=== PATIENT | female | born 1970 | race Caucasian/White ===

== ENCOUNTER 2017-08-31 07:51 | Inpatient (IN) | payer BC ==
[2017-08-31 08:29] LABS: Urine Blood TRACE (NEG); Urine Glucose NEGATIVE (NEG); Urine Protein NEGATIVE (NEG)
[2017-08-31] MEDS ORDERED: NA CHLORIDE 0.9% 1,000 ML ONE ×2 (08:40→11:05)
[2017-08-31] MEDS ORDERED: ONDANSETRON 4 MG/2 ML VIAL ONE ×2 (08:40→10:49)
[2017-08-31] MEDS ORDERED: MORPHINE 4 MG/ML SYR ONE (08:40)
[2017-08-31 08:45] LABS: Urine Bacteria <20 /HPF (<20); Urine Culture Reflex Order REFLEXED; Urine Mucus LIGHT /HPF (NONE SEEN); Urine RBC <5 /HPF (NONE SEEN)
[2017-08-31 08:50] LABS: Absolute Lymphocytes (CBC) 1.4 K/uL (0.7-4.9); Absolute Monocytes 0.7 K/uL (0.1-1.3); Basophils % 0.3 % (0-1.3); Eosinophils % 0.7 % (0-4.4); Hematocrit 39.5 % (36.0-45.0); Lymphocytes % 10.8 % (15.3-44.8); MCV 86.7 fL (80-100); MPV 8.1 fL (7.6-11.3); Monocytes % 5.6 % (3.3-12.3); RBC Red Blood Cell Count 4.56 M/uL (3.86-4.86)
[2017-08-31 08:53] LABS: Glomerular Filtration Rate > 60 mL/min (>60)
[2017-08-31 08:59] LABS: Albumin 4.1 g/dL (3.2-5.5); Bilirubin Direct 0.1 mg/dL (0-0.2); Bilirubin Total 0.8 mg/dL (0.3-1.2); Protein, Total 7.4 g/dL (6.0-8.3)
--- NOTE | 2017-08-31 10:35 | RAD REPORT ---
EXAM DESCRIPTION: CTAbdomen Pelvis W Contrast - 08/31/2017 10:21 am CLINICAL HISTORY: Abdominal pain. COMPARISON: None. TECHNIQUE: Biphasic CT imaging of the abdomen and pelvis was performed with 100 ml non-ionic IV cont rast. All CT scans are performed using dose optimization technique as appropriate and may include automated exposure control or mA/KV adjustment according to patient size. FINDINGS: The lung bases are clear. Several hypodense liver lesions are present, the largest measuring 3.6 cm in the anterior superior ri ght lobe, likely representing a benign cyst. The spleen, pancreas, adrenal glands and kidneys show no acute process. Cyst is present in the inferior cortex right kidney measuring 15 mm. No bowel obstruction, free air, free fluid or abscess. The appendix is dilated to 17 mm with surroun ding inflammatory changes, compatible with acute appendicitis. Air is present in the lumen of the brando endix which could indicate early perforation. Sigmoid diverticulosis coli is present without divertic ulitis. No evidence of significant lymphadenopathy. Small fat containing umbilical hernia. No suspicious bony findings. Fibroid uterus suspected. IMPRESSION: Moderate acute appendicitis as detailed.
[2017-08-31] MEDS ORDERED: KETOROLAC 30 MG/ML INJ ONE ×2 (10:49→13:37)
--- NOTE | 2017-08-31 10:53 | ER ---
Nurse's Notes [facility] Name: Katie Stanley Age: 47 yrs Sex: Female : 1970 Arrival Date: 08/31/2017 Time: 07:53 Bed 20 Private MD: Ferdinand Ty H Diagnosis: Acute appendicitis with localized peritonitis Presentation: 08/31 08:04 Presenting complaint: Patient states: RLQ pain x 1 week, has gotten worse since ss yesterday. pt reports diarrhea initially when pain began, but now believes she may be constipated. Transition of care: patient was not received from another setting of care. Onset of symptoms was August 24, 2017. Care prior to arrival: None. 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 - Social history:: Smoking status: Patient/guardian denies using tobacco. Screenin:34 Abuse screen: Denies threats or abuse. Nutritional screening: No deficits noted. em Tuberculosis screening: No symptoms or risk factors identified. Fall Risk None identified. Assessment: 08:20 General: Appears in no apparent distress. uncomfortable, Behavior is calm, cooperative. em General: Denies fever. Pain: Complains of pain in right lower quadrant Pain radiates to left lower quadrant Pain currently is 9 out of 10 on a pain scale. Quality of pain is described as sharp, Pain began 2-3 days ago. Neuro: Level of Consciousness is awake, alert, obeys commands, Oriented to person, place, time, situation. Cardiovascular: Capillary refill < 3 seconds Patient's skin is warm and dry. Respiratory: Airway is patent Respiratory effort is even, unlabored, Respiratory pattern is regular, symmetrical. GI: Abdomen is flat, Bowel sounds present X 4 quads. Abd is soft X 4 quads Abdomen is tender to palpation in right lower quadrant Reports diarrhea, nausea, Patient currently denies vomiting. : Urine is clear. EENT: No signs and/or symptoms were reported regarding the EENT system. Derm: Skin is intact, Skin is pink, warm \T\ dry. Musculoskeletal: Range of motion: intact in all extremities. 08:30 Reassessment: I agree with above assessment by Adonay Lang LVN. iw 08:42 Reassessment: Patient appears in no apparent distress at this time. Patient is alert, em oriented x 3, equal unlabored respirations, skin warm/dry/pink. finished drinking PO contrast, CT dept. notified Patient states feeling better. 09:40 Reassessment: Patient appears in no apparent distress at this time. Patient and/or em family updated on plan of care and expected duration. Pain level reassessed. Patient is alert, oriented x 3, equal unlabored respirations, skin warm/dry/pink. Patient states feeling better. Patient states symptoms have improved. 10:40 Reassessment: Patient appears in no apparent distress at this time. Patient and/or em family updated on plan of care and expected duration. Pain level reassessed. Patient is alert, oriented x 3, equal unlabored respirations, skin warm/dry/pink. 11:34 Reassessment: Patient appears in no apparent distress at this time. Patient and/or em family updated on plan of care and expected duration. Pain level reassessed. Patient is alert, oriented x 3, equal unlabored respirations, skin warm/dry/pink. Patient states symptoms have improved. Vital Signs: 08:11 BP 152 / 77; Pulse 82; Resp 18; Temp 98.2; Pulse Ox 97% on R/A; Pain 9/10; em 08:59 BP 131 / 80; Pulse 75; Resp 18; Pulse Ox 97% on R/A; Pain 5/10; em 09:57 BP 146 / 91; Pulse 84; Resp 17; Pulse Ox 96% on R/A; mh5 11:34 BP 143 / 85; Pulse 78; Resp 18; Pulse Ox 99% on R/A; Pain 3/10; em ED Course: 07:53 Patient arrived in ED. as 07:54 Ferdinand Ty DO is Private Physician. as 07:59 [facility] Hammond [facility] cp 07:59 Bo Montalvo MD is Attending Physician. cp 07:59 Adonay Lang LVN is Primary Nurse. em 08:05 Triage completed. ss 08:30 No provider procedures requiring assistance completed. Initial lab(s) drawn, by me, em sent to lab. Urine collected: clean catch specimen, clear. Inserted saline lock: 20 gauge in right antecubital area, using aseptic technique. Blood collected. 08:34 Patient has correct armband on for positive identification. Placed in gown. Bed in low em position. Call light in reach. Side rails up X2. 08:38 Arm band placed on. em 10:17 CT completed. Patient tolerated procedure well. Patient moved to CT via wheelchair. jg1 Patient moved back from CT. 10:21 CT Abd/Pelvis - W/Contrast In Process Unspecified. EDMS 10:52 Daniel Magana MD is Hospitalizing Provider. cp 11:47 Patient admitted, IV remains in place. em Administered Medications: 08:30 Drug: Zofran 4 mg Route: IVP; Site: right antecubital; iw 08:43 Follow up: Response: No adverse reaction em 08:30 Drug: morphine 4 mg Route: IVP; Site: right antecubital; iw 08:43 Follow up: Response: No adverse reaction; Pain is decreased em 08:34 Drug: NS 0.9% 1000 ml Route: IV; Rate: 1 bolus; Site: right antecubital; em 10:36 Follow up: IV Status: Completed infusion; IV Intake: 1000ml em 10:36 Drug: TORadol 15 mg Route: IVP; Site: right antecubital; iw 10:57 Follow up: Response: No adverse reaction; Pain is decreased em 10:36 Drug: Zofran 4 mg Route: IVP; Site: right antecubital; em 10:57 Follow up: Response: No adverse reaction; Nausea is decreased em 10:56 Drug: metroNIDAZOLE 500 mg Volume: 100 ml; Route: IVPB; Infused Over: 30 mins; Site: em right antecubital; 10:56 Drug: NS 0.9% 1000 ml Route: IV; Rate: 125 ml/hr; Site: right antecubital; em 10:56 Not Given (Physician Discretion): morphine 4 mg IVP once em 11:23 Drug: Mefoxin 1 grams Route: IVPB; Infused Over: 30 mins; Site: right antecubital; iw Intake: 10:36 IV: 1000ml; Total: 1000ml. em Outcome: 10:52 Decision to Hospitalize by Provider. cp 11:47 Admitted to OR accompanied by nurse, via stretcher, Report called to SANDY Lucio ss 11:47 Condition: good 11:47 Instructed on the need for admit. 11:47 Patient left the ED. Signatures: Dispatcher [employer] Kristin Covarrubias Edgar, Charo Leone LVN, Irene, RN RN Claire Allen RN RN ss Page, Corey, PA PA cp Martinez, Maria [facility] Corrections: (The following items were deleted from the chart) 08:05 08:04 Immunization history: [facility]
--- NOTE | 2017-08-31 10:53 | EDPHYS ---
Physician Documentation [facility] Name: Katie Stanley Age: 47 yrs Sex: Female : 1970 Arrival Date: 08/31/2017 Time: 07:53 Bed 20 Private MD: Ferdinand Ty H ED Physician Bo Montalvo HPI: 08/31 08:15 This 47 yrs old Female presents to ER via Ambulatory with complaints of cp Abdominal Pain. 08:15 The patient presents with abdominal pain right lower quadrant. Onset: The cp symptoms/episode began/occurred 3 day(s) ago. Associated signs and symptoms: Pertinent positives: diarrhea, nausea, Pertinent negatives: fever, vomiting. 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 - Social history:: Smoking status: Patient/guardian denies using tobacco. ROS: 08:20 Constitutional: Negative for body aches, chills, fever, poor PO intake. cp 08:20 Eyes: Negative for injury, pain, redness, and discharge, ENT: Negative for injury, cp pain, and discharge, Cardiovascular: Negative for chest pain, palpitations, and edema, Respiratory: Negative for shortness of breath, cough, wheezing, and pleuritic chest pain. 08:20 Abdomen/GI: Positive for abdominal pain, nausea, diarrhea, Negative for constipation, black/tarry stool, rectal bleeding. 08:20 Back: Negative for pain at rest, pain with movement, radiated pain. 08:20 : Negative for urinary symptoms. 08:20 Skin: Negative for cellulitis, rash. 08:20 All other systems are negative. Exam: 08:25 Constitutional: The patient appears in no acute distress, alert, awake, non-toxic, well cp developed, well nourished, uncomfortable. 08:25 Head/Face: Normocephalic, atraumatic. Eyes: Pupils equal round and reactive to light, cp extra-ocular motions intact. Lids and lashes normal. Conjunctiva and sclera are non-icteric and not injected. Cornea within normal limits. Periorbital areas with no swelling, redness, or edema. ENT: Nares patent. No nasal discharge, no septal abnormalities noted. Tympanic membranes are normal and external auditory canals are clear. Oropharynx with no redness, swelling, or masses, exudates, or evidence of obstruction, uvula midline. Mucous membranes moist. Chest/axilla: Normal chest wall appearance and motion. Nontender with no deformity. No lesions are appreciated. Cardiovascular: Regular rate and rhythm with a normal S1 and S2. No gallops, murmurs, or rubs. Normal PMI, no JVD. No pulse deficits. Respiratory: Lungs have equal breath sounds bilaterally, clear to auscultation and percussion. No rales, rhonchi or wheezes noted. No increased work of breathing, no retractions or nasal flaring. 08:25 Abdomen/GI: Inspection: abdomen appears normal, Bowel sounds: active, all quadrants, Palpation: soft, in all quadrants, severe abdominal tenderness, in the right lower quadrant, rebound tenderness, is appreciated in the right lower quadrant, involuntary guarding, is elicited in the right lower quadrant. 08:25 Back: CVA tenderness, is absent. 08:25 Skin: cellulitis, is not appreciated, no rash present. Vital Signs: 08:11 BP 152 / 77; Pulse 82; Resp 18; Temp 98.2; Pulse Ox 97% on R/A; Pain 9/10; em 08:59 BP 131 / 80; Pulse 75; Resp 18; Pulse Ox 97% on R/A; Pain 5/10; em 09:57 BP 146 / 91; Pulse 84; Resp 17; Pulse Ox 96% on R/A; mh5 11:34 BP 143 / 85; Pulse 78; Resp 18; Pulse Ox 99% on R/A; Pain 3/10; em MDM: 07:59 Patient medically screened. cp 09:00 Differential diagnosis: appendicitis, bowel obstruction, cholecystitis, Cholelithiasis, cp diverticulitis, pancreatitis. 10:40 Data reviewed: vital signs, nurses notes, lab test result(s), radiologic studies, CT cp scan. 10:40 Response to treatment: the patient's symptoms have markedly improved after treatment. cp 08/31 08:12 Order name: Amylase, Serum; Complete Time: 08:59 cp 08/31 08:12 Order name: Basic Metabolic Panel; Complete Time: 08:59 cp 04 08:59 Interpretation: Normal except: GFR 80. cp 08/31 08:12 Order name: CBC with Diff; Complete Time: 08:59 cp 08/31 09:00 Interpretation: Normal except: WBC 13.3; DARIELA% 82.6; LYM% 10.8; NEUT A 11.0. cp 08/31 08:12 Order name: Creatinine for Radiology; Complete Time: 08:59 cp 08/31 08:12 Order name: Hepatic Function; Complete Time: 08:59 cp 08/31 08:12 Order name: Lipase; Complete Time: 08:59 cp 08/31 08:12 Order name: Urine Microscopic Only; Complete Time: 08:59 cp 08/31 08:59 Interpretation: Normal except: UWBC 10-20; SQEPI 10-20. cp 08/31 08:12 Order name: CT Abd/Pelvis - W/Contrast; Complete Time: 10:37 cp 08/31 10:37 Interpretation: Report reviewed. cp 08/31 08:19 Order name: Urine Dipstick--Ancillary (enter results); Complete Time: 08:39 bd 08/31 08:39 Interpretation: Normal except: UBLD TRACE; UESTR TRACE. cp 08/31 08:20 Order name: Urine --Ancillary (enter results); Complete Time: 08:39 bd 08/31 08:46 Order name: Urine Culture EDMS 08/31 08:12 Order name: Urine Test (obtain specimen); Complete Time: 08:44 cp 08/31 08:12 Order name: IV Saline Lock; Complete Time: 08:44 cp 08/31 08:12 Order name: Labs collected and sent; Complete Time: 08:44 cp 08/31 08:12 Order name: Urine Dipstick-Ancillary (obtain specimen); Complete Time: 08:44 cp 08/31 10:41 Order name: NPO; Complete Time: 11:24 cp Administered Medications: 08:30 Drug: Zofran 4 mg Route: IVP; Site: right antecubital; iw 08:43 Follow up: Response: No adverse reaction em 08:30 Drug: morphine 4 mg Route: IVP; Site: right antecubital; iw 08:43 Follow up: Response: No adverse reaction; Pain is decreased em 08:34 Drug: NS 0.9% 1000 ml Route: IV; Rate: 1 bolus; Site: right antecubital; em 10:36 Follow up: IV Status: Completed infusion; IV Intake: 1000ml em 10:36 Drug: TORadol 15 mg Route: IVP; Site: right antecubital; iw 10:57 Follow up: Response: No adverse reaction; Pain is decreased em 10:36 Drug: Zofran 4 mg Route: IVP; Site: right antecubital; em 10:57 Follow up: Response: No adverse reaction; Nausea is decreased em 10:56 Drug: metroNIDAZOLE 500 mg Volume: 100 ml; Route: IVPB; Infused Over: 30 mins; Site: em right antecubital; 10:56 Drug: NS 0.9% 1000 ml Route: IV; Rate: 125 ml/hr; Site: right antecubital; em 10:56 Not Given (Physician Discretion): morphine 4 mg IVP once em 11:23 Drug: Mefoxin 1 grams Route: IVPB; Infused Over: 30 mins; Site: right antecubital; iw Disposition: 08/31/17 10:52 Hospitalization ordered by Daniel Magana for Observation. Preliminary diagnosis is Acute appendicitis with localized peritonitis. - Bed requested for Operating Room. - Status is Observation. ss - Condition is Stable. - Problem is new. - Symptoms have improved. UTI on Admission? No Addendum: 09/01/2017 13:20 Co-signature as Attending Physician, Bo Montalvo MD. g s Signatures: Dispatcher [employer] EDME Adonay Lang, DIGITAL MEDIA REPRESENTATIVE DIGITAL MEDIA REPRESENTATIVE Do Vigil RN RN Claire Allen RN RN Adriel Hammond PA PA Bo Prater MD MD Corrections: (The following items were deleted from the chart) 08/31 08:05 08:04 Immunization history: [facility] 09/01 07:44 08/30 08:25 Constitutional: The patient appears in no acute distress, alert, awake, cp non-toxic, well developed, well nourished, uncomfortable, cp 09/01 07:44 08/30 08:25 Head/Face: Normocephalic, atraumatic. Eyes: Pupils equal round and reactive cp to light, extra-ocular motions intact. Lids and lashes normal. Conjunctiva and sclera are non-icteric and not injected. Cornea within normal limits. Periorbital areas with no swelling, redness, or edema. ENT: Nares patent. No nasal discharge, no septal abnormalities noted. Tympanic membranes are normal and external auditory canals are clear. Oropharynx with no redness, swelling, or masses, exudates, or evidence of obstruction, uvula midline. Mucous membranes moist. Chest/axilla: Normal chest wall appearance and motion. Nontender with no deformity. No lesions are appreciated. cp 09/01 06:44 08/30 08:25 Cardiovascular: Rate: normal, Rhythm: regular, cp cp 09/01 06:08/30 08:25 Respiratory: the patient does not display signs of respiratory distress, cp Respirations: normal, no use of accessory muscles, no retractions, no splinting, no tachypnea, labored breathing, is not present, Breath sounds: are clear throughout, no decreased breath sounds, no stridor, no wheezing, cp 09/01 06:44 08/30 08:25 Abdomen/GI: Inspection: abdomen appears normal, Bowel sounds: active, all cp quadrants, Palpation: soft, in all quadrants, moderate abdominal tenderness, in the right lower quadrant, rebound tenderness, is appreciated in the right lower quadrant, involuntary guarding, is elicited in the right lower quadrant, cp 09/01 06:08/30 08:25 Back: pain, is absent, ROM is normal, cp cp 09/01 06:08/30 08:25 Skin: cellulitis, is not appreciated, no rash present. cp cp
[2017-08-31] MEDS ORDERED: METRONIDAZOLE 500mg IVPB 500 MG/100 ML BAG IV ONE (11:05)
[2017-08-31] MEDS ORDERED: CEFOXITIN/SWI 1gm 1 GM/10 ML SYR IV ONE (11:15)
[2017-08-31] MEDS ORDERED: MORPHINE 4 MG/ML SYR IV PRN (11:50)
[2017-08-31] MEDS ORDERED: MIDAZOLAM HCL 2 MG/2 ML INJ ONE (11:53)
[2017-08-31] MEDS ORDERED: ROCURONIUM 50 MG/5 ML VIAL IV ONE (11:53)
[2017-08-31] MEDS ORDERED: PROPOFOL 200 MG/20 ML VIAL IV ONE (11:53)
[2017-08-31] MEDS ORDERED: FENTANYL CITR 100 MCG/2 ML ONE ×4 (11:53→13:31)
[2017-08-31] MEDS ORDERED: LIDOCAINE 1% MPF 5 ML VIAL ONE (11:53)
[2017-08-31] MEDS: D5 0.45 NS 1,000 ML IV SCH ×2 (12:00→17:21)
[2017-08-31] MEDS ORDERED: GLYCOPYRROLATE 0.2 MG/ML SYR ONE ×2 (13:37→13:39)
--- NOTE | 2017-08-31 13:37 | P.BOP ---
Preoperative diagnosis: acute appendicitis Postoperative diagnosis: acute suppurative appendicitis, peritonitis, incarcerated umbilical hernia Primary procedure: 1. Laparoscopy appendectomy Secondary procedure: 2. open repair of incarcerated umbilical hernia Outside Operator: Kathy Mclaughlin) Estimated blood loss: <10cc Specimen: appendix Findings: acute suppurative appendicitis, peritonitis, incarcerated umbilical hernia Anesthesia: General Complications: None Transferred to: Recovery Room Condition: Good
[2017-08-31] MEDS ORDERED: NEOSTIGMINE 1 MG/ML -5 ML SYRINGE ONE (13:38)
[2017-08-31 16:29] VITALS: BMI 29.0
[2017-08-31] MEDS: CEFOXITIN/SWI 1gm 1 GM/10 ML SYR IV SCH ×2 (17:21→23:46)
[2017-08-31] MEDS: METRONIDAZOLE 500mg IVPB 500 MG/100 ML BAG IV SCH ×2 (17:21→23:47)
[2017-08-31] MEDS: ONDANSETRON 4 MG/2 ML VIAL IV PRN (17:23)
[2017-08-31] MEDS: HYDROCODONE/APAP 7.5/325 MG TAB PO PRN (21:14)
--- NOTE | 2017-08-31 21:39 | OP ---
Date of Procedure: 08/31/2017 Surgeon: Daniel Magana MD Insurance Marketing Rep: SHILA Akhtar. Preoperative Diagnosis: Acute appendicitis. Postoperative Diagnosis: Acute suppurative appendicitis, peritonitis, incarcerated umbilical hernia. Procedures: Laparoscopic appendectomy, open repair of incarcerated umbilical hernia. Estimated Blood Loss: Less than 10 cc. Specimen: Appendix and hernia sac. Findings: Suppurative appendix with peritoneal inflammation, periappendiceal inflammation with suppu rative content. Also the patient has incarcerated umbilical hernia with omentum on it. Anesthesia: General plus local. Indications: This is the case of a 47-year-old patient, who came to us with above diagnosis of acute peritonitis, acute appendicitis, who was emergently taken to the OR. Fully explained the benefits, alternatives, and risks of laparoscopic, possible open appendectomy and possible hernia repair which include, but not limited to infection, bleeding, damage to adjacent structures, anesthesia complicati on, abscess, [place], or even . She also understands this may not relieve any symptoms. She might n eed more than one surgical intervention. She understood. Signed a consent. Description Of Procedure: The patient was brought to the operating room, placed in supine position. Anesthesia was done without complication. Abdominal area was prepped and draped in a sterile fashio n. Marcaine 0.5% injected for local anesthetic, followed by sharp incision of the skin in the infrau mbilical region with a sharp knife. We did use the previous incision from tubal ligation. Incision was carried down to fascia, which was opened under direct vision. We noticed the patient to have umb ilical hernia. So, we proceeded to reduce the umbilical hernia as omentum present on it. Removed th e hernia sac. Made a new incision connected to the umbilical hernia opening. Vicryl #1 placed insid e the fascia. Carla trocar was carefully introduced. Pneumoperitoneum was obtained. I placed 2 mo re trocars, suprapubic and left lower quadrant, 5 mm each one of them, under direct visualization. A fter that I proceeded to visualize the area of the appendix, looked suppurative in nature, inflamed b ut the base of the appendix seems to be intact, so we created a window in the base of the appendix, t ransected that with an Endo GAYLE 45 mm, 3.5, and the mesoappendix with sequential Endo GAYLE 45 mm, 2.5. Mesoappendix was inflamed and was attached to adhesions to adjacent tissues. They were carefully r emoved. No bleeding. No bile leak. Appendix removed from abdominal cavity using an EndoCatch throu gh the umbilical incision. The area was irrigated and inspected once again. Pelvis was also irrigat ed and suctioned until completely clear. In the area of the appendix, once again no bowel leak and n o bleeding. At that moment, I proceeded to remove the trocars under direct visualization. Desufflat ed the pneumoperitoneum. Closed the fascia with #1 on the fascia and the umbilical hernia with #1 Vi cryl. Irrigated subcutaneous tissue and closed that with 3-0 chromic and skin with shirley. Sponge count and instrument counts were correct. The patient tolerated the procedure well. The patient was sent to recovery in stable condition. The patient will receive antibiotics in the next 24 hours. D epends on how she does clinically, tomorrow if she is afebrile and tolerating diet, then we will proc eed accordingly with her disposition. CLINT/ADELAIDA Voice ID: [id number] Report ID: [id number]
--- NOTE | 2017-08-31 23:03 | HP ---
Date of Admission: 08/31/2017 Diagnosis: Acute appendicitis with peritonitis. History Of Present Illness: This is a case of a 47-year-old patient, who came to us complaining of a bdominal pain since yesterday morning, associated with diarrhea, nausea, and vomiting. She denies an y dysuria, hematuria, hematochezia, or melena. Denies any recent traveling out of the country. Isaiah es any family member sick at home. The patient came this morning to the ER complaining of severe abd ominal pain and surgical consult was obtained. Allergies: NONE. Social History: She does not smoke. She does not drink alcohol. Family History: Noncontributory. Medications: None. Past Surgical History: Tubal ligation. Review of Systems: Constitutional: As stated, having malaise. Respiratory: Denies any shortness of breath. Gastrointestinal: As above. Genitourinary: Denied any denies any dysuria or hematuria. Breast: Denies any breast discharge or any masses. Physical Examination: General: The patient is awake and alert. HEENT: Pupils are equal and reactive, anicteric. Neck: Supple. Chest: Clear. Abdomen: Soft and depressible, but there is right lower quadrant tenderness with guarding and reboun d. Pelvic: Deferred. Breast: Deferred. Rectal: Deferred. Extremities : Good capillary refill. Neurologic: Cranial nerves 2 through 12 grossly within normal limits. Laboratory Data: Blood work shows WBC count of 13, hemoglobin of 13. Potassium 4.0, lipase 19. Uri nalysis; test negative. Wbc's count in urine 10-20. Diagnostic Data: CAT scan of the abdomen and pelvis interpreted by Dr. Lopez as acute appendicitis, d ilated appendix with inflammatory changes, which may even be early perforation. The patient also has umbilical hernia. Assessment: This is a 47-year-old patient with peritonitis, acute abdominal pain, possible perforate d appendix with umbilical hernia too. The patient was fully explained the benefits, alternatives, an d risks of laparoscopic, possible open appendectomy which include but are not limited to infection, b leeding, damage to adjacent structures, anesthesia complication, abscess, [place], or even . She als o understands this may not relieve any symptoms. She might need more than one surgical intervention. She understands we might be able to fix the hernia. If we cannot, then another day, she might have to have it fixed. Concerning kidney cyst, she is advised to discuss that with her primary doctor. The patient was emergently booked in OR. CLINT/ADELAIDA Voice ID: [id number]
[2017-09-01 05:32] LABS: Absolute Monocytes 0.7 K/uL (0.1-1.3); Absolute Neutrophil 5.8 K/uL (1.8-8.0); Basophils % 0.4 % (0-1.3); Eosinophils % 1.8 % (0-4.4); Hematocrit 34.9 % (36.0-45.0); Lymphocytes % 22.7 % (15.3-44.8); MCH 29.8 pg (27.0-35.0); MCV 88.4 fL (80-100); MPV 8.1 fL (7.6-11.3); Monocytes % 7.9 % (3.3-12.3); RBC Red Blood Cell Count 3.95 M/uL (3.86-4.86)
[2017-09-01] MEDS: CEFOXITIN/SWI 1gm 1 GM/10 ML SYR IV SCH ×4 (05:58→23:20)
[2017-09-01] MEDS: METRONIDAZOLE 500mg IVPB 500 MG/100 ML BAG IV SCH ×4 (05:58→23:21)
[2017-09-01] MEDS: D5 0.45 NS 1,000 ML IV SCH ×3 (05:58→20:00)
[2017-09-01] MEDS: ACETAMINOPHEN 500 MG TAB PO PRN ×2 (06:03→22:11)
--- NOTE | 2017-09-01 13:12 | P.DS ---
Admission Date: 08/31/17 Discharge Date: 09/01/17 Disposition: ROUTINE DISCHARGE Discharge Condition: GOOD Vital Signs/Physical Exam: Temp Pulse Resp BP Pulse Ox 97.1 F 63 16 132/79 99 09/01/17 08:00 09/01/17 08:00 09/01/17 08:00 09/01/17 08:00 09/01/17 08:00 General: Alert, Oriented x3 HEENT: PERRLA, EOMI Neck: Supple Gastrointestinal: Soft and benign Musculoskeletal: No erythema, No tenderness, No warmth Integumentary: No rashes Laboratory Data at Discharge: WBC 8.6 K/uL (4.3-10.9) D 09/01/17 05:10 Hgb 11.8 g/dL (12.0-15.0) L 09/01/17 05:10 Hct 34.9 % (36.0-45.0) L 09/01/17 05:10 Plt Count 218 K/uL (152-406) 09/01/17 05:10 Sodium 138 mEq/L (135-145) 09/01/17 05:10 Potassium 4.0 mEq/L (3.6-5.0) 09/01/17 05:10 BUN 7 mg/dL (6-20) 09/01/17 05:10 Creatinine 0.79 mg/dL (0.44-1.00) 09/01/17 05:10 Glucose 119 mg/dL (65-120) 09/01/17 05:10 Total Bilirubin 0.8 mg/dL (0.3-1.2) 08/31/17 08:30 AST 17 IU/L (10-42) 08/31/17 08:30 ALT 11 IU/L (10-60) 08/31/17 08:30 Alkaline Phosphatase 76 IU/L (42-121) 08/31/17 08:30 Amylase 52 U/L (28-100) 08/31/17 08:30 Lipase 19 U/L (22-51) L 08/31/17 08:30 Home Medications: Codeine/APAP [Tylenol W/Codeine #3 tab] 1 tab PO Q4HP PRN #20 tab 09/01/17 Levofloxacin [Levaquin] 750 mg PO DAILY #7 tab 09/01/17 Metronidazole [Flagyl] 500 mg PO Q6H #20 tablet 09/01/17 New Medications: Codeine/APAP [Tylenol W/Codeine #3 tab] 1 tab PO Q4HP PRN #20 tab PRN Reason: Pain Levofloxacin [Levaquin] 750 mg PO DAILY #7 tab Metronidazole [Flagyl] 500 mg PO Q6H #20 tablet Patient Discharge Instructions: keep area dry for 48h them may shower. Diet: AHA Activity: No lifting more than 10 lbs Followup: Daniel Magana MD [Family Provider] - 1 Week
[2017-09-01] MEDS: HYDROCODONE/APAP 7.5/325 MG TAB PO PRN (15:42)
[2017-09-01] MEDS: ONDANSETRON 4 MG/2 ML VIAL IV PRN ×2 (16:57→22:11)
[2017-09-02] MEDS: D5 0.45 NS 1,000 ML IV SCH (02:00)
[2017-09-02 04:49] VITALS: O2SAT 98
[2017-09-02] MEDS: CEFOXITIN/SWI 1gm 1 GM/10 ML SYR IV SCH (06:11)
[2017-09-02] MEDS: METRONIDAZOLE 500mg IVPB 500 MG/100 ML BAG IV SCH (06:11)
[2017-09-02 09:58] VITALS: BP 154/85; TEMP 97.3
== END 2017-09-02 10:58 | disposition home or self-care (01) | DRG 339 ==
LOC: ER 07:51 → 2ND 14:16 → OBSVTOIN 14:38
PROVIDERS: ADMIT Surgery; ATTEND Surgery
PROC: 0WQF0ZZ Repair Abdominal Wall, Open Approach (ICD-10-PCS; 2017-08-31)
PROC: 0DTJ4ZZ Resection of Appendix, Percutaneous Endoscopic Approach (ICD-10-PCS; principal; 2017-08-31 11:15)
DX: K35.2 Acute appendicitis with generalized peritonitis (principal); K42.0 Umbilical hernia with obstruction, without gangrene
CPT/HCPCS: 36415; 74177; 80048; 80076; 81003; 81015; 81025; 82150; 83690; 85025; 87086; 87088; 88302; 88304; 96361; 96374; 96375; 99285; J2250; J2405; J2710; J3010; J7030; Q9967

== ENCOUNTER 2021-06-27 12:48 | Emergency (ER) | payer BC ==
--- OUTSIDE RECORDS SUMMARY | 2021-06-27 12:50 | XMS REPORT | Continuity of Care Document ---
:1970 Author Organization [facility] t Address [address] [place] [address] Care Team Providers Name Role Phone LAMBERT Primary Care Physician Unavailable Jr JULIEN III Attending Clinician Unavailable Doctor Unassigned, Name Attending Clinician Unavailable JAMEL Attending Clinician Unavailable Cb JOHNS Attending Clinician Jamel LUNA Attending Clinician Payers Payer Name Policy Type Policy Number Effective Date Expiration Date S [facility] - [id number] 2017 00:00:00 OUT OF STATE Problems Condition Condition Condition Status Onset Resolution Last Treating Co mments Source Name Details Category Date Date Treatment Clinician Date No known No known Disease Unive rs active active ity of problems problems [facility] Allergies, Adverse Reactions, Alerts Allergy Allergy Status Severity Reaction(s) Onset Inactive Treating Comm ents Source Name Type Date Date Clinician NO KNOWN Drug Active Univers ALLERGIE Class ity of S [facility] Social History Social Habit Start Date Stop Date Quantity Comments Source Exposure to Not sure [facility] SARS-CoV-2 (event) Medica l Branch Tobacco use and 2021-05-10 2021-05-10 Never used [facility] exposure 00:00:00 00:00:00 [facility] Sex Assigned At [birth year] [facility] 00:00:00 00:00:00 [facility] Smoking Status Start Date Stop Date Source Never smoker [facility] Medications Ordered Filled Start Stop Current Ordering Indication Dosage Frequency Signature Comments Components Source Medication Medication Date Date Medication? Clinician (SIG) Name Name francoise 2020-06 Yes [id number] 5mL Take 5 mL Univers mine-pseudo 2-10 by mouth 4 it y of ephedrine-D 00:00: (four) Braxton Latham (BROMFED 00 times Medical DM) 2-30-10 daily as Bran ch mg/5 mL needed for syrup Congestion /Allergies or Cough. bromphenira 2020-06 Yes [id number] 5mL Take 5 mL Univers mine-pseudo 2-10 by mouth 4 it y of ephedrine-D 00:00: (four) Braxton Latham (BROMFED 00 times Medical DM) 2-30-10 daily as Bran ch mg/5 mL needed for syrup Congestion /Allergies or Cough. Vital Signs Vital Name Observation Time Observation Value Comments Source Systolic blood 2021-05-10 18:02:00 134 mm[Hg] [facility]iver [facility] Diastolic blood 2021-05-10 18:02:00 86 mm[facility]Hg[facility] Heart rate 2021-05-10 18:02:00 78 /min [facility] Body temperature 2021-05-10 18:02:00 37.11 Dara [facility] Respiratory rate 2021-05-10 18:02:00 18 /min [facility] Body height 2021-05-10 18:02:00 167.6 cm [facility] Body weight 2021-05-10 18:02:00 78.744 kg [facility] BMI 2021-05-10 18:02:00 28.02 kg/m2 [facility] Oxygen saturation in 2021-05-10 18:02:00 100 /min [facility] Arterial blood by [facility] Pulse oximetry Branch Procedures Procedure Date / Time Performed Performing Clinician [facility] e ASSIGNMENT OF BENEFITS 2021-06-27 17:57:51 Doctor Unassigned, No [facility] Name [facility] Branch Encounters Start End Encounter Admission Attending Care Care Encounter Source Date/Time Date/Time Type Type Clinicians Facility Department ID 2021-06-27 2021-06-27 Outpatient R [facility] [id number] Univers 18:40:00 18:40:00 [id number] [facility] 2021-06-27 2021-06-27 Outpatient R KING MARCIA [facility] [id number] [facility] 18:40:00 18:40:00 [facility] 2021-06-27 2021-06-27 Orders Doctor ANEL [id number] Univers 00:00:00 00:00:00 Only Unassigned, BABS [id number] ity of [place] [facility] [id number] Jose as [phone] [address] 2021-05-10 2021-05-10 Outpatient Guadalupe CANTOR [facility] [id number] Univers 12:00:00 12:28:05 [facility] 2021-05-10 2021-05-10 Urgent Laura Vivar [facility] [id number] Univers 11:58:40 12:28:05 Becka Connelly [facility] [id number] ity of [place] [id number] Jose as NAVEED?BLEA [id number] Ca marsha CARRASCO [address] [place] [address] MEDICAL OFFICE BUILDING Results This patient has no known results.
[2021-06-27 13:32] LABS: Absolute Lymphocytes (CBC) 1.6 K/uL (0.7-4.9); Hematocrit 43.8 % (36.0-45.0); Lymphocytes % 16.2 % (15.3-44.8); RBC Red Blood Cell Count 4.98 M/uL (3.86-4.86)
[2021-06-27 14:21] LABS: ALT/SGPT 23 U/L (12-78); AST/SGOT 12 U/L (15-37); Albumin 3.6 g/dL (3.4-5.0); Alkaline Phosphatase 90 U/L (45-117); BUN Blood Urea Nitrogen 9 mg/dL (7-18); Bicarbonate 28 mmol/L (21-32); Bilirubin Direct < 0.1 mg/dL (0-0.2); Bilirubin Total 0.4 mg/dL (0.2-1.0); Glucose Level 118 mg/dL (74-106); Lipase 90 U/L (73-393); Potassium 4.1 mmol/L (3.5-5.1); Sodium Level 140 mmol/L (136-145)
--- NOTE | 2021-06-27 14:58 | RAD REPORT ---
EXAM DESCRIPTION: CT - Abdomen Pelvis W Contrast - 06/27/2021 2:35 pm CLINICAL HISTORY: Abdominal pain COMPARISON: 2018 TECHNIQUE: Computed axial tomography of the abdomen pelvis was obtained. 100 cc Isovue-300 was admin istered intravenously. Oral contrast was not requested which limits evaluation of bowel. All CT scans are performed using dose optimization technique as appropriate and may include automated exposure control or mA/KV adjustment according to patient size. FINDINGS: Multiple hepatic cysts. The largest measures 3.5 centimeters. . 12 millimeter lesion withi n the periphery of the right lower lobe of the liver has a Hounsfield unit of 21. Spleen, pancreas and right kidney are unremarkable. 20 millimeter mass extends off of anterior aspect of the left kidney. Hounsfield unit 28. It is incre ased in size from the prior exam which it measured 15 millimeters. Appendectomy. Diverticula stem from the colon. Mild to moderate stranding adjacent to the sigmoid colon. No free ai r. No abscess No adnexal mass IMPRESSION: Mild to moderate sigmoid diverticulitis 12 millimeter hepatic and 20 millimeter left renal masses do not have the appearance of simple cysts. Most likely they are benign complex cysts. However, as a precaution it is recommended patient a foll owup ultrasound in 3 months for re-evaluation.
--- NOTE | 2021-06-27 15:59 | ER ---
Nurse's Notes [facility] Name: Katie Stanley Age: 50 yrs Sex: Female : 1970 Arrival Date: 06/27/2021 Time: 12:51 Bed 12 Private MD: Ferdinand Ty H Diagnosis: Acute Diverticulitis Presentation: 06/27 13:10 Chief complaint: Patient states: Diarrhea X 3 weeks - escalated this past week to 7-8 ld1 times a day. ABD distention X 1 day. Chills last night. Lower abdominal pain X 3 days. C/O nausea today. Coronavirus screen: At this time, the client does not indicate any symptoms associated with coronavirus-19. Ebola Screen: No symptoms or risks identified at this time. Initial Sepsis Screen: Does the patient meet any 2 criteria? No. Patient's initial sepsis screen is negative. Does the patient have a suspected source of infection? No. Patient's initial sepsis screen is negative. Risk Assessment: Do you want to hurt yourself or someone else? Patient reports no desire to harm self or others. Onset of symptoms was June 27, 2021. 13:10 Method Of Arrival: Ambulatory ld1 13:10 Acuity: NOLAN 3 ld1 Triage Assessment: 13:12 General: Appears in no apparent distress. comfortable, Behavior is calm, cooperative, ld1 appropriate for age. Pain: Complains of pain in right lower quadrant and left lower quadrant Pain does not radiate. Pain currently is 8 out of 10 on a pain scale. Quality of pain is described as stabbing. Neuro: Level of Consciousness is awake, alert, obeys commands, Oriented to person, place, time, situation. Respiratory: Airway is patent Respiratory effort is even, unlabored. GI: Abdomen is flat, non-distended, Reports lower abdominal pain, diarrhea, nausea. 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 - Social history:: Smoking status: Patient denies any tobacco usage or history of. Patient/guardian denies using alcohol. Screenin:37 Abuse screen: Denies threats or abuse. Denies injuries from another. Nutritional ic1 screening: No deficits noted. Tuberculosis screening: No symptoms or risk factors identified. Fall Risk None identified. Vital Signs: 13:10 BP 142 / 92; Pulse 95; Resp 18; Temp 98.2(TE); Pulse Ox 98% on R/A; Weight 78.93 kg; ld1 Height 5 ft. 5 in. (165.10 cm); Pain 8/10; 16:37 BP 126 / 84; Pulse 86; Resp 16; Pulse Ox 99% on R/A; ic1 13:10 Body Mass Index 28.95 (78.93 kg, 165.10 cm) ld1 ED Course: 12:51 Patient arrived in ED. am2 12:51 Ferdinand Ty DO is Private Physician. am2 13:12 Triage completed. ld1 13:12 Arm band placed on right wrist. ld1 13:15 Inserted saline lock: 20 gauge in right antecubital area, using aseptic technique. ld1 Blood collected. 14:35 CT Abd/Pelvis - IV Contrast Only In Process Unspecified. EDMS 15:05 Nixon Velázquez PA is [facility] 15:05 Goran Ramirez MD is Attending Physician. m 15:58 Armin Dailey MD is Referral Physician. m 16:37 IV discontinued, intact, bleeding controlled, No redness/swelling at site. Pressure ic1 dressing applied. Administered Medications: 16:18 Drug: morphine 4 mg Route: IVP; Site: right antecubital; ic1 16:18 Drug: Zofran (Ondansetron) 4 mg Route: IVP; Site: right antecubital; ic1 Outcome: 15:58 Discharge ordered by . [facility] 16:38 Discharged to home ambulatory. ic1 16:38 Condition: stable 16:38 Discharge instructions given to patient, Instructed on discharge instructions, follow up and referral plans. Demonstrated understanding of instructions, follow-up care, medications, Prescriptions given X 4. 16:39 Patient left the ED. ic1 Signatures: Dispatcher [employer] EDMS Nixon Velázquez PA PA jmm Mcfadden, Haylee am2 Elif Beckwith, RN RN ld1 Ana Rosa Joseph RN RN ic1 Corrections: (The following items were deleted from the chart) 13:12 PSHx: Unable to Obtain; ld1 ld1 13:12 PSHx: None; ld1 ld1
--- NOTE | 2021-06-27 15:59 | EDPHYS ---
Physician Documentation [facility] Name: Katie Stanley Age: 50 yrs Sex: Female : 1970 Arrival Date: 06/27/2021 Time: 12:51 Bed 12 Private MD: Ferdinand Ty H ED Physician Goran Ramirez HPI: 06/27 15:55 This 50 yrs old Female presents to ER via Ambulatory with complaints of jmm Abdominal Pain, Abdominal Distention. 15:55 The patient presents with abdominal pain. Onset: The symptoms/episode began/occurred jmm gradually, 2 day(s) ago. The symptoms do not radiate. Associated signs and symptoms: Pertinent positives: nausea, Pertinent negatives: diarrhea, vomiting. The symptoms are described as achy, crampy. Modifying factors: The symptoms are alleviated by nothing, the symptoms are aggravated by nothing. The patient has experienced a previous episode. . 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 - Social history:: Smoking status: Patient denies any tobacco usage or history of. Patient/guardian denies using alcohol. ROS: 15:55 Constitutional: Negative for fever, chills, and weight loss, Cardiovascular: Negative jmm for chest pain, palpitations, and edema, Respiratory: Negative for shortness of breath, cough, wheezing, and pleuritic chest pain. 15:55 Abdomen/GI: Positive for abdominal pain. 15:55 All other systems are negative. Exam: 15:55 Constitutional: This is a well developed, well nourished patient who is awake, alert, jmm and in no acute distress. Head/Face: atraumatic. Eyes: EOMI, no conjunctival erythema appreciated ENT: Moist Mucus Membranes Neck: Trachea midline, Supple Chest/axilla: Normal chest wall appearance and motion. Cardiovascular: Regular rate and rhythm. No edema appreciated Respiratory: Normal respirations, no respiratory distress appreciated 15:55 Back: Normal ROM Skin: General appearance color normal 15:55 Abdomen/GI: Inspection: abdomen appears normal, Palpation: soft, mild abdominal tenderness, in the left lower quadrant. 15:55 Musculoskeletal/extremity: ROM: intact in all extremities. 15:55 Skin: Appearance: Color: normal in color. 15:55 Neuro: Motor: is normal. 15:55 Psych: Behavior/mood is pleasant, cooperative. Vital Signs: 13:10 BP 142 / 92; Pulse 95; Resp 18; Temp 98.2(TE); Pulse Ox 98% on R/A; Weight 78.93 kg; ld1 Height 5 ft. 5 in. (165.10 cm); Pain 8/10; 16:37 BP 126 / 84; Pulse 86; Resp 16; Pulse Ox 99% on R/A; ic1 13:10 Body Mass Index 28.95 (78.93 kg, 165.10 cm) ld1 MDM: 15:50 Patient medically screened. stephon 15:56 Data reviewed: vital signs, nurses notes. Counseling: I had a detailed discussion with stephon the patient and/or guardian regarding: the historical points, exam findings, and any diagnostic results supporting the discharge/admit diagnosis, lab results, radiology results, the need for outpatient follow up, to return to the emergency department if symptoms worsen or persist or if there are any questions or concerns that arise at home. ED course: Patient is alert and nontoxic in appearance in the ED. Patient will be given a course of oral antibiotics. Patient otherwise given strict return precautions. Patient understood agrees plan of care.. 06/27 13:15 Order name: Basic Metabolic Panel; Complete Time: 15:51 06/27 13:15 Order name: CBC with Diff; Complete Time: 15:51 06/27 13:15 Order name: Hepatic Function; Complete Time: 15:51 06/27 13:15 Order name: Lipase; Complete Time: 15:51 06/27 13:15 Order name: CT Abd/Pelvis - IV Contrast Only; Complete Time: 15:51 06/27 13:15 Order name: IV Saline Lock; Complete Time: 13:16 06/27 13:15 Order name: Labs collected and sent; Complete Time: 13:16 ld1 Administered Medications: 16:18 Drug: morphine 4 mg Route: IVP; Site: right antecubital; ic1 16:18 Drug: Zofran (Ondansetron) 4 mg Route: IVP; Site: right antecubital; ic1 Disposition: 17:35 Co-signature as Attending Physician, Goran Ramirez MD I agree with the assessment and kdr plan of care. Disposition Summary: 06/27/21 15:58 [facility]charge [facility]able [facility] Diagnosis - [facility] - With: Armin Dailey MD - When: 2 - 3 days - Reason: Recheck today's complaints, Continuance of care, Re-evaluation by your physician Discharge Instructions: - Discharge Summary Sheet [facility] - [facility] Forms: - Medication Reconciliation Form [facility] - [facility] Letter [facility] - Antibiotic Education [facility] - Prescription Opioid Use [facility] Prescriptions: - ondansetron 4 mg Oral tablet,disintegrating - place 1 tablet by TRANSLINGUAL route every 4-6 hours; 30 tablet; Refills: 0, [facility] Product Selection Permitted - Flagyl 500 mg Oral Tablet - take 1 tablet by ORAL route every 6 hours for 10 days; 40 tablet; Refills: 0, [facility] Product Selection Permitted - Ultracet 37.5-325 mg Oral Tablet - take 1 tablet by ORAL route every 6 hours - for up to 5 days; do not exceed 8 jmm tablets per day.; 20 tablet; Refills: 0, Product Selection Permitted - levofloxacin 750 mg Oral Tablet - take 1 tablet by ORAL route once daily; 10 tablet; Refills: 0, Product [facility] Selection Permitted Signatures: Dispatcher [employer] [facility] Goran Ramirez MD MD kdr Mickail, Joel, PA PA [facility] Elif Beckwith RN RN ld1 Ana Rosa Joseph RN RN ic1 Corrections: (The following items were deleted from the chart) 13:13 13:12 PSHx: Unable to Obtain; ld1 ld1 13:13 13:12 PSHx: None; ld1 ld1
[2021-06-27] MEDS ORDERED: ONDANSETRON 4 MG/2 ML VIAL ONE (16:09)
[2021-06-27] MEDS ORDERED: MORPHINE 4 MG/ML SYR ONE (16:09)
[2021-06-27 16:53] VITALS: TEMP 98.2
[2021-06-27 16:55] VITALS: BP 126/84; O2SAT 99
== END 2021-06-27 16:39 | disposition home or self-care (01) ==
LOC: ER 12:48
DX: K57.92 Diverticulitis of intestine, part unspecified, without perforation or abscess without bleeding (principal)
CPT/HCPCS: 85025; 80048; 36415; 80076; 83690; 74177; 96375; 96374; 99284; Q9967; J2405